=== PATIENT | female | born 1960 | race Caucasian/White ===

== ENCOUNTER 2020-05-19 03:23 | Emergency (ER) | payer OTHER ==
[~2020-05-19] VITALS: Ht 160 cm; Wt 40.8 kg
[2020-05-19] MEDS ORDERED: IV NS 0.9% 1,000 ML BAG IV ONE (03:30)
--- NOTE | 2020-05-19 03:31 | NUR ---
PT AAOX4. BIBRA C/O ABD PAIN RECENTLY ADMITTED TO [facility] LAST WEEK, DX: ULCERATIVE COLITIS. NO ACUTE DISTRESS NOTED. YAKELIN. AT BEDSIDE FOR EVAL. AWAITING ORDERS.
--- NOTE | 2020-05-19 03:46 | NUR ---
LABS COLLECTED AND SENT
[2020-05-19 03:50] LABS: BASOPHILS % (AUTO) 0.3 % (0.0-2.0); EOSINOPHILS % (AUTO) 0.6 % (0.0-6.0); HEMATOCRIT 33 % (33-45); HEMOGLOBIN 10.5 g/dL (11.5-14.8); LYMPHOCYTES # (AUTO) 0.4 /CMM (0.8-4.8); LYMPHOCYTES % (AUTO) 6.1 % (20.0-44.0); MEAN CORPUSCULAR HGB CONC 32 g/dl (31.0-36.0); MEAN CORPUSCULAR VOLUME 83 fL (82-100); MONOCYTES # (AUTO) 0.3 /CMM (0.1-1.30); MONOCYTES % (AUTO) 4.7 % (2.0-12.0); NEUTROPHILS # (AUTO) 6.2 /CMM (1.8-8.9); NEUTROPHILS % (AUTO) 88.3 % (43.0-81.0); PLATELET COUNT (AUTO) 489 /CMM (150-450); RED BLOOD CELL COUNT(AUTO) 3.98 MIL/uL (4.0-5.2)
[2020-05-19] MEDS ORDERED: MORPHINE SULFATE INJ 4 MG/ML DISP.SYRIN ONE (04:15)
[2020-05-19] MEDS ORDERED: PANTOPRAZOLE 40 MG VIAL IV ONE (04:30)
[2020-05-19] MEDS ORDERED: PANTOPRAZOLE 40 MG VIAL ONE (04:30)
[2020-05-19] MEDS ORDERED: MORPHINE SULFATE INJ 10 MG/ML DISP.SYRIN IV ONE (04:30)
--- NOTE | 2020-05-19 04:55 | NUR ---
K 2.6 CALCIUM 5.9
[2020-05-19] MEDS ORDERED: IOHEXOL-300 100 ML VIAL IV ONE (05:01)
--- NOTE | 2020-05-19 05:01 | NUR ---
PER , REDRAW LABS.
[2020-05-19] MEDS ORDERED: CT SWABBABLE VALVE TRANS SET 1 EA INFUS.SET MC ONE (05:02)
[2020-05-19] MEDS ORDERED: IV NS 0.9% 250 ML IV ONE (05:02)
--- NOTE | 2020-05-19 05:26 | NUR ---
COLLECTION TELLER AT BEDSIDE FOR REDRAW
--- NOTE | 2020-05-19 05:44 | NUR ---
Called lab regarding labs
[2020-05-19 06:00] LABS: ALBUMIN 1.7 g/dL (3.4-5.0); BILIRUBIN,DIRECT 0.1 mg/dL (0.0-0.2); BILIRUBIN,TOTAL 0.3 mg/dL (0.2-1.0); CREATININE 0.8 mg/dL (0.6-1.3); TOTAL PROTEIN, SERUM 5.5 g/dL (6.4-8.2)
[2020-05-19 06:11] LABS: POTASSIUM 2.8 mmol/L (3.5-5.1)
[2020-05-19 06:13] LABS: CALCIUM, SERUM 5.1 mg/dL (8.5-10.1)
--- NOTE | 2020-05-19 06:14 | NUR ---
FAX CLINICALS TO: [phone] [facility] CM: INÉS
--- NOTE | 2020-05-19 06:23 | NUR ---
CALLED RADIOLOGY TO TAKE PT TO CT.
--- NOTE | 2020-05-19 06:34 | NUR ---
BRYCE TO CT
--- NOTE | 2020-05-19 06:41 | NUR ---
BROUGHT BACK FROM CT. ON MONITOR AND PULSE OX. VSS.
--- NOTE | 2020-05-19 06:45 | NUR ---
CLINICALS FAXED TO [facility]
--- NOTE | 2020-05-19 07:10 | NUR ---
MD TO MD IN PROGRESS.
--- NOTE | 2020-05-19 07:13 | NUR ---
PT ACCEPT[facility] AT [facility] UNDER DR. ANG. WAITING FOR CM TO CALL FOR TRANSFER DETAILS.
[2020-05-19] MEDS ORDERED: CEFTRIAXONE 1GM BAG (ER ONLY) 50 ML IV ONE ×2 (07:30)
[2020-05-19] MEDS ORDERED: METRONIDAZOLE 500MG/ NS 100ML 100 ML IV ONE (07:30)
--- NOTE | 2020-05-19 07:32 | NUR ---
Assumed care report given by Manual Rn
[2020-05-19] MEDS: METRONIDAZOLE 500MG/ NS 100ML 100 ML IV ONE ×2 (07:34→08:20)
--- NOTE | 2020-05-19 08:22 | NUR ---
PATIENT ASLEEP BUT AROUSABLE, VITAL SIGNS TAKEN AND FILED, RIGHT AC IV MEDS INFUSING WELL, NO EDEMA, NO REDNESS. CONTINUE TO MONITOR.
--- NOTE | 2020-05-19 08:46 | NUR ---
TRANSFER INFO: GOING TO [facility] REPORT TO CARLOS A ,[phone] [facility] ETA 30-45 MINUTES
--- NOTE | 2020-05-19 09:12 | NUR ---
Patient complain of pain shes stated Morhine shot not working MD aware patient requested for [place] aware
[2020-05-19] MEDS ORDERED: HYDROCODONE/APAP 5/325MG TABLET ONE (09:14)
[2020-05-19] MEDS ORDERED: HYDROCODONE/APAP 5/325MG TABLET PO ONE (09:30)
--- NOTE | 2020-05-19 09:52 | NUR ---
Called Report given to Lilia MCGINNIS @ ED packet incld. CD hand to EMD royalty unit ACLS
[2020-05-19 09:54] VITALS: BP 90/60
== END 2020-05-19 09:54 | disposition short-term general hospital (02) ==
LOC: ER 03:25
DX: R10.9 Unspecified abdominal pain (principal); K92.2 Gastrointestinal hemorrhage, unspecified; D64.9 Anemia, unspecified; Z20.828 Contact with and (suspected) exposure to other viral communicable diseases; G89.29 Other chronic pain; M32.9 Systemic lupus erythematosus, unspecified; I10 Essential (primary) hypertension; Z87.19 Personal history of other diseases of the digestive system
CPT/HCPCS: 36415; 74177; 80048; 80076; 83690; 85025; 87081; 87426; 96361; 96365; 96367; 96375; 99285; C9113; C9803; J0696; J2270; J7030; J7050; Q9967